=== PATIENT | female | born 1950 | race Caucasian/White ===

== ENCOUNTER → 2020-02-15 11:10 | Outpatient (BNVA) | payer OTHER, SELFPAY | PROVIDERS: Visit Provider Internal Medicine | DX: E11.65 Type 2 diabetes mellitus with hyperglycemia (principal); E55.9 Vitamin D deficiency, unspecified; I10 Essential (primary) hypertension; E78.5 Hyperlipidemia, unspecified; Z79.4 Long term (current) use of insulin | CPT/HCPCS: 99212 ==

== ENCOUNTER → 2020-09-12 10:20 | Outpatient (BNVA) | payer OTHER, SELFPAY | PROVIDERS: PCP Internal Medicine; Visit Provider Internal Medicine | DX: E11.65 Type 2 diabetes mellitus with hyperglycemia (principal); I10 Essential (primary) hypertension; E78.5 Hyperlipidemia, unspecified; E55.9 Vitamin D deficiency, unspecified; Z79.4 Long term (current) use of insulin | CPT/HCPCS: Q3014 ==

== ENCOUNTER 2020-10-05 09:51 | Outpatient (REF) | payer MEDICARE, SELFPAY ==
--- NOTE | ~2020-10-05 | MM_ITS ---
EXAMINATION: MM SCREENING DIGITAL BREAST TOMOSYNTHESIS, BILATERAL CLINICAL INFORMATION: Screening. Asymptomatic. The lifetime risk of breast cancer based on the Tyrer-Cuzick Model is 2.%. COMPARISON: Mammography: January 04, 2018 and January 09, 2009 TECHNIQUE: Digital breast tomosynthesis is performed in both the craniocaudal and mediolateral oblique views along with computer-aided detection (CAD). Synthesized 2D images are generated from the tomosynthesis. FINDINGS: The breasts are almost entirely fatty (ACR BI-RADS breast composition Category a). There are no significant masses, abnormal calcifications, or other abnormalities. MM/MM tomosynthesis screening BI IMPRESSION: There are no significant changes from prior study. ASSESSMENT: BI-RADS 1: Negative RECOMMENDATION: Routine annual mammography screening. This patient's information was entered into a reminder system with a target due date for their next mammogram.
[2020-10-05 11:08] LABS: Estimated Average Glucose 177 mg/dL; Hemoglobin A1c % 7.8 %
[2020-10-05 11:17] LABS: Alanine Aminotransferase 11 U/L (0-31); Albumin Level 4.2 g/dL (3.5-5.0); Alkaline Phosphatase 111 U/L (39-117); Anion Gap 14 (12-20); Aspartate Amino Transferase 14 U/L (5-31); Bilirubin Total 0.3 mg/dL (0.0-1.0); Blood Urea Nitrogen 9 mg/dL (9-16); Calcium 9.7 mg/dL (8.4-10.2); Carbon Dioxide 24 mmol/L (22-29); Chloride 105 mmol/L (96-108); Cholesterol 160 mg/dL; Estimated Glomerular Filt Rate 47; Glucose Random 170 mg/dL (60-115); HDL Cholesterol 42 mg/dL; LDL Cholesterol Calculated 82 mg/dl; Potassium 5.3 mmol/L (3.3-5.1); Sodium 138 mmol/L (135-145); Total Protein 7.2 g/dL (6.5-8.0); Triglycerides 181 mg/dL
[2020-10-05 11:29] LABS: Vitamin D 25-OH Total 35.6 ng/mL (>30)
[2020-10-05 11:38] LABS: Creatinine Urine 29.59 mg/dL; Microalbum/Creatinine Ratio Ur 16.8 ug/mg cr
[2020-10-05 11:42] LABS: Vitamin B12 < 146 pg/mL (200-900)
[2020-10-06 10:07] LABS: LDL Cholesterol Direct 87 mg/dL (<100)
== END 2020-10-05 09:52 | disposition home or self-care (01) ==
LOC: HO.MAMMO 09:51
PROVIDERS: PCP Internal Medicine; Referring Provider Internal Medicine; Visit Provider Internal Medicine
DX: Z12.31 Encounter for screening mammogram for malignant neoplasm of breast (principal); E11.65 Type 2 diabetes mellitus with hyperglycemia; E55.9 Vitamin D deficiency, unspecified; Z79.4 Long term (current) use of insulin
CPT/HCPCS: 36415; 77063; 77067; 80053; 80061; 82043; 82306; 82607; 83036; 83721

== ENCOUNTER 2020-10-11 09:54 | Outpatient (REF) | payer MEDICARE, SELFPAY ==
[2020-10-11 11:18] LABS: Anion Gap 13 (12-20); Blood Urea Nitrogen 13 mg/dL (9-16); Calcium 9.4 mg/dL (8.4-10.2); Carbon Dioxide 23 mmol/L (22-29); Chloride 108 mmol/L (96-108); Estimated Glomerular Filt Rate 47; Glucose Random 133 mg/dL (60-115); Potassium 4.8 mmol/L (3.3-5.1); Sodium 139 mmol/L (135-145)
[2020-10-11 11:30] LABS: Creatinine Urine 25.19 mg/dL
== END 2020-10-11 09:55 | disposition home or self-care (01) ==
LOC: HO.LAB 09:54
PROVIDERS: Visit Provider Internal Medicine
DX: E11.65 Type 2 diabetes mellitus with hyperglycemia (principal); Z79.4 Long term (current) use of insulin
CPT/HCPCS: 36415; 80048

== ENCOUNTER 2020-10-11 11:23 | Emergency (ER) | payer MEDICARE, SELFPAY ==
--- NOTE | ~2020-10-11 | XR_ITS ---
EXAMINATION: RIGHT HAND/WRIST CLINICAL INFORMATION: Right foot dated pain. COMPARISON: None TECHNIQUE: 3 views. FINDINGS: There is mild loss of PIP and DIP joint space with no bony erosive changes. There is no visible acute fracture, dislocation or subluxation seen. Especially there is no abnormality for digit The soft tissues are normal. XR/XR hand wrist RT IMPRESSION: No abnormality involving the right for digit especially no fracture. There are mild degenerative changes involving PIP and DIP joints right hand.
[2020-10-11 11:53] VITALS: BP 139/72; PULSE 71; RESP 16; TEMP 36.6; O2SAT 99; BMI 30.9
--- NOTE | 2020-10-11 12:20 | ED.EXTPRO ---
HPI - Extremity Problem General Chief complaint: Extremity Injury, Upper Stated complaint: HAND PAIN Time Seen by Provider: 10/11/20 12:20 Source: patient Limitations: language barrier History of Present Illness HPI Narrative: Patient complaining of left hand pain that is atraumatic pain is located in the palmar aspect of the left hand at the bases of the 5th 3rd and 4th digits. Pain increases with range of motion patient denies past history of arthritis. Symptoms moderate pain is 5/10. Related Data Home Medications Medication Instructions Recorded Confirmed chlorhexidine gluconate 0.12 % ml PO 02/15/20 09/12/20 mouthwash clindamycin HCl 300 mg capsule 300 mg PO TID 02/15/20 09/12/20 famotidine 20 mg tablet 40 mg PO BID 02/15/20 09/12/20 losartan 50 mg tablet 50 mg PO DAILY 02/15/20 09/12/20 pen needle, diabetic 32 gauge x #50 ea 02/15/20 09/12/20 simvastatin 20 mg tablet 20 mg PO BEDTIME 02/15/20 09/12/20 aspirin 81 mg tablet,delayed 81 mg PO DAILY 09/12/20 09/12/20 release blood sugar diagnostic #10 ea 09/12/20 09/12/20 insulin aspart U-100 100 unit/mL See Rx Instructions SUBCUT TID ml 09/12/20 09/12/20 (3 mL) subcutaneous pen insulin degludec 100 unit/mL (3 18 unit SUBCUT BEDTIME ml 09/12/20 09/12/20 mL) subcutaneous pen levothyroxine 50 mcg tablet 50 mcg PO DAILY 09/12/20 09/12/20 loratadine 10 mg tablet 10 mg PO DAILY 09/12/20 09/12/20 metoprolol tartrate 50 mg tablet 50 mg PO BID 09/12/20 09/12/20 pantoprazole 40 mg tablet,delayed 40 mg PO DAILY 09/12/20 09/12/20 release Previous Rx's Medication Instructions Recorded metformin 1,000 mg tablet 1,000 mg PO BID #180 tab 05/21/20 blood-glucose meter #1 ea 06/04/20 sitagliptin 100 mg tablet 100 mg PO DAILY 30 Days #30 tab 09/12/20 mecobalamin (vitamin B12) 1,000 1,000 mcg SUBLINGUAL BEDTIME 30 10/08/20 mcg disintegrating Days #30 tab tablet,sublingual naproxen [Naprosyn] 500 mg PO DAILY PRN #14 tab 10/11/20 Allergies Allergy/AdvReac Type Severity Reaction Status Date / Time Penicillins Allergy Unknown RASH Verified 09/12/20 14:49 Review of Systems Review of Systems: Yes all other systems are reviewed and are negative Constitutional: Constitutional: Reports fever(s), Reports headache(s) and Reports weakness ENT: Reports headache(s) Cardiovascular: Cardiovascular: Reports chest pain and Reports dyspnea Respiratory: Respiratory: Reports dyspnea Gastrointestinal: Gastrointestinal: Reports vomiting Musculoskeletal: Comments: Left hand pain Neurologic: Reports headache(s) and Reports weakness PMFSH Past Medical History Attestation statement: The following information was validated with the patient. Medical History HLD (hyperlipidemia) HTN (hypertension) T2DM (type 2 diabetes mellitus) Vitamin D deficiency Surgical History Hx of right coronary artery stent placement Family History Family History Father Diabetes Social History Social History Patient Tobacco Use Status: Never used Tobacco Advance Directives: No Advance Directives Information Provided: No Physical Exam Vital Signs: Vital Signs: Last Vital Signs Temp 97.8 F 10/11/20 11:53 Pulse 71 10/11/20 11:53 Resp 16 10/11/20 11:53 BP 139/72 10/11/20 11:53 Pulse Ox 99 10/11/20 11:53 Body Mass Index 30.9 vital signs have been reviewed as normal and appeared to be correct. Blood pressure normal. Heart rate normal. Respiration rate normal. Temperature normal. Oxygen saturation normal. Appearance: Alert. Oriented X3. No acute distress. Head: Normal external exam. Normocephalic. Atraumatic. No [place] signs noted. No raccoon eyes noted Eyes: PERRLA. EOMI. Conjunctiva and sclera normal. Eyelids normal. ENT: Pharynx normal. Uvula midline. Moist mucous membranes. No trismus noted. No drooling noted. No muffled voice noted. Neck: Soft full range of motion, no JVD CVS: Heart regular rate and rhythm no murmurs and rubs Respiratory: Breath sounds are clear to auscultation bilaterally. No accessory muscle use noted.ounds Skin: Skin warm and dry. Normal skin color. Normal skin turgor. No rashes/lesions/lacerations noted. 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 Neuro: Oriented X 3. No motor deficit. No sensory deficit. Reflexes normal. Course Course Course Narrative: Left hand arthritis Left hand pain Overuse injury MDM - Extremity (Nontraumatic) Imaging Data hand: Radiologist's impression: [address] [id number] ReportSigned Patient: Jayden Santiago#: [id number]: 1950cct:[id number]/Sex: 70 / FADM Date: 10/11/20Loc: HO.EDAttending Dr: Ordering Physician: Kyle Gonzalez MD Date of Service: 10/11/20 Procedure(s): XR hand wrist RT Accession Number(s): [id number] cc: Kyle Gonzalez MD~ EXAMINATION: RIGHT HAND/WRIST CLINICAL INFORMATION: Right foot dated pain. COMPARISON: None TECHNIQUE: 3 views. FINDINGS: There is mild loss of PIP and DIP joint space with no bony erosive changes. There is no visible acute fracture, dislocation or subluxation seen. Especially there is no abnormality for digit The soft tissues are normal. XR/XR hand wrist RT IMPRESSION: No abnormality involving the right for digit especially no fracture. There are mild degenerative changes involving PIP and DIP joints right hand. Dictated By:CORINNA KEARNS MDSigned By:<Electronically signed by CORINNA KEARNS MD in OV>10/11/20 1250 DD/ 1159TD/TT: Jacquard Card Cutter: [facility] – [place], [place] Discharge Plan Discharge Clinical Impression: Hand pain, right Patient Disposition: Home, Self-Care Instructions: Hand Sprain (ED) Additional Instructions: x-rays shows degenerative diseases in your hand likely secondary to arthritis. No obvious signs of fracture at this time will recommend follow-up with hand surgeon Prescriptions: New naproxen [Naprosyn] 500 mg tablet 500 mg PO DAILY PRN (Reason: pain) Qty: 14 RF: 0 No Action metformin 1,000 mg tablet 1,000 mg PO BID Qty: 180 RF: 11 (DME) blood-glucose meter [FreeStyle Lite Meter] Kit See Rx Instructions .ROUTE .MEDSUPPLY Qty: 1 RF: 0 Januvia 100 mg tablet 100 mg PO DAILY 30 Days Qty: 30 RF: 11 mecobalamin (vitamin B12) 1,000 mcg tablet,disintegrating 1,000 mcg sublingual BEDTIME 30 Days Qty: 30 RF: 11 (DME) pen needle, diabetic 32 gauge x 5/32 needle See Rx Instructions ea subcut .MEDSUPPLY Qty: 50 RF: 0 simvastatin 20 mg tablet 20 mg PO BEDTIME RF: 0 clindamycin HCl 300 mg capsule 300 mg PO TID RF: 0 famotidine 20 mg tablet 40 mg PO BID RF: 0 chlorhexidine gluconate 0.12 % mouthwash PO RF: 0 losartan 50 mg tablet 50 mg PO DAILY RF: 0 insulin aspart U-100 100 unit/mL (3 mL) insulin pen See Rx Instructions subcut TID RF: 0 insulin degludec 100 unit/mL (3 mL) insulin pen 18 unit subcut BEDTIME RF: 0 loratadine 10 mg tablet 10 mg PO DAILY RF: 0 pantoprazole 40 mg tablet,delayed release (DR/EC) 40 mg PO DAILY RF: 0 metoprolol tartrate 50 mg tablet 50 mg PO BID RF: 0 aspirin 81 mg tablet,delayed release (DR/EC) 81 mg PO DAILY RF: 0 levothyroxine 50 mcg tablet 50 mcg PO DAILY RF: 0 (DME) FreeStyle Lite Strips Strip See Rx Instructions .ROUTE .MEDSUPPLY Qty: 10 RF: 0 Referrals: Leela Ashton MD [Physician] - 2 days
== END 2020-10-11 13:27 | disposition home or self-care (01) ==
PROVIDERS: Emergency Provider Emergency Medicine Emergency Medical Services; PCP Internal Medicine
DX: M79.641 Pain in right hand (principal); I10 Essential (primary) hypertension; E11.9 Type 2 diabetes mellitus without complications; Z79.4 Long term (current) use of insulin; Z79.899 Other long term (current) drug therapy
CPT/HCPCS: 73110; 73130; 99283